=== PATIENT | female | born 1940 | race Two or more races ===

== ENCOUNTER → 2019-08-17 | Outpatient (CLI) | payer OTHER | END | disposition home or self-care (01) | LOC: RAD 14:39 | DX: R10.84 Generalized abdominal pain (principal) ==

== ENCOUNTER 2022-05-12 18:04 | Inpatient (IN) | payer OTHER ==
[~2022-05-12] VITALS: Ht 162.6 cm; Wt 63.5 kg
[2022-05-12] MEDS ORDERED: TIROSINT50 MCG PO (18:35)
[2022-05-12] MEDS ORDERED: JANUMET 50-1,01 EACH PO (18:35)
[2022-05-12] MEDS ORDERED: ATORVASTATIN CA10 MG PO (18:36)
== END 2022-05-22 22:40 | disposition home or self-care (01) | DRG 378 ==
LOC: ER → ICU-2 05-13 11:22 → SURH 05-15 17:46
PROVIDERS: ADMIT Internal Medicine; ATTEND Internal Medicine
PROC: 30233N1 Transfusion of Nonautologous Red Blood Cells into Peripheral Vein, Percutaneous Approach (ICD-10-PCS; principal; 2022-05-13)
DX: K62.5 Hemorrhage of anus and rectum (principal); A04.72 Enterocolitis due to Clostridium difficile, not specified as recurrent; K57.33 Diverticulitis of large intestine without perforation or abscess with bleeding; D50.0 Iron deficiency anemia secondary to blood loss (chronic); I10 Essential (primary) hypertension; E03.9 Hypothyroidism, unspecified; E11.9 Type 2 diabetes mellitus without complications; B96.89 Other specified bacterial agents as the cause of diseases classified elsewhere; Z79.84 Long term (current) use of oral hypoglycemic drugs

== ENCOUNTER 2022-09-29 08:08 | Outpatient (CLI) | payer OTHER ==
[~2022-09-29 08:08] MED LIST: ATORVASTATIN CA10 MG PO; JANUMET 50-1,01 EACH PO; TIROSINT50 MCG PO
== END 2022-09-29 08:17 | disposition home or self-care (01) ==
LOC: TOM 08:08
PROVIDERS: ATTEND Internal Medicine Gastroenterology
DX: K57.30 Diverticulosis of large intestine without perforation or abscess without bleeding (principal); K62.5 Hemorrhage of anus and rectum; K56.600 Partial intestinal obstruction, unspecified as to cause